=== PATIENT | male | born 1955 | race American Indian/Alaskan Native ===

== ENCOUNTER 2018-12-19 11:39 | Emergency (ER) | payer MEDICAID ==
[2018-12-19 12:07] VITALS: BMI 27.1
[2018-12-19 12:11] VITALS: BP 138/90; PULSE 72; RESP 18; TEMP 97.7; O2SAT 97
--- NOTE | 2018-12-19 12:48 | ED PDOC ---
Arrival/HPI - General Chief Complaint: Eye Problem Historian: Patient - History of Present Illness Narrative History of Present Illness (Text): 12/19/18 12:43 A 63 year old male, with no significant past medical history, presents to the emergency department complaining of right upper eyelid pain since yesterday morning. Patient states he wears glasses when reading. He mentions yesterday right eye was slightly watery, and feels more pain to the upper lid than lower lid. Also, states today upon waking up, found right upper eyelid to be puffy and had a hard time opening his right eye. Denies any itchiness, injuries/trauma, eye discharge, pain with eye movement, ear pain, congestion, or any other complaints at this time. Patient denies any history of diabetes. NKDA. Usually goes to the [facility] located in [place], [place]. 12/19/18 14:21 Past Medical History - Provider Review Nursing Documentation Reviewed: Yes - Infectious Disease Hx of Infectious Diseases: None - Psychiatric Hx Substance Use: No - Anesthesia Hx Anesthesia: No Family/Social History - Physician Review Nursing Documentation Reviewed: Yes Family/Social History: No Known Family HX Smoking Status: Former Smoker Hx Alcohol Use: Yes Frequency of alcohol use: Socially Hx Substance Use: No Allergies/Home Meds Allergies/Adverse Reactions: Allergies No Known Allergies Allergy (Verified 12/19/18 12:07) Review of Systems - Review of Systems Constitutional: absent: Fatigue, Fevers Eyes: Other (no foreign body sensation, there is pain to right upper eyelid). absent: Vision Changes, Photophobia ENT: absent: Voice Changes, Sore Throat, Rhinorrhea, Sinus Congestion Respiratory: absent: SOB Cardiovascular: absent: Chest Pain Gastrointestinal: absent: Abdominal Pain Musculoskeletal: absent: Back Pain Skin: absent: Rash Neurological: absent: Headache Physical Exam - Physical Exam Narrative Physical Exam (Text): Head: Atraumatic. Normocephalic. Eyes: PERRL. EOMI. Conjunctivae are not pale. ENT: Mucous membranes are moist and intact. Oropharynx is clear and symmetric. Neck: Supple. Full ROM. No JVD. No lymphadenopathy. Cardiovascular: Regular rate. Regular rhythm. No murmurs, rubs, or gallops. Distal pulses are 2+ and symmetric. Pulmonary/Chest: No evidence of respiratory distress. Clear to auscultation bilaterally. No wheezing, rales or rhonchi. Abdominal: Soft and non-distended. There is no tenderness. No rebound, guarding, or rigidity. No organomegaly. Good bowel sounds. Back: No CVA tenderness. Extremities: No edema. No cyanosis. No clubbing. Full range of motion in all extremities. No calf tenderness. Skin: Skin is warm and dry. No petechiae. No purpura. Neurological: Alert, awake, and oriented to person, place, time, and situation. Normal speech. Psychiatric: Good eye contact. Normal interaction, affect, and behavior. Vital Signs Reviewed: Yes Vital Signs Temp Pulse Resp BP Pulse Ox 12/19/18 12:10 97.7 F 72 18 138/90 97 Temperature: Afebrile Appearance: Positive for: Well-Appearing, Non-Toxic, Comfortable Pain Distress: Mild Mental Status: Positive for: Alert and Oriented X 3 - Systems Exam Head: Present: Atraumatic, Normocephalic. No: Ecchymosis Pupils: Present: PERRL Extroacular Muscles: Present: EOMI, Other (no pain with eye movements, no proptosis). No: Entrapment Conjunctiva: Present: Other (mild swelling to right upper eyelid medial aspect with no purulence noted, no fluctuance, mild surroudning erythema, no orbital erythema, no foreign bodies noted). No: Injected Ears: Present: NORMAL TM. No: Erythema Mouth: Present: Moist Mucous Membranes Pharnyx: No: ERYTHEMA, EXUDATE, Muffled/Hoarse Voice, Strider Nose (Internal): Present: Normal Inspection, No Active Bleeding Neck: Present: Normal Range of Motion. No: Meningeal Signs Respiratory/Chest: Present: Clear to Auscultation. No: Respiratory Distress Cardiovascular: Present: Regular Rate and Rhythm Abdomen: No: Tenderness Lymphatic: No: Cervical Adenopathy Psychiatric: Present: Alert, Normal Insight, Normal Concentration Medical Decision Making ED Course and Treatment: 12/19/18 14:21 Patient on exam is afebrile, nontoxic appearing. No pain with eye movements. No proptosis. Pain and swelling localized to right upper eyelid witn no corneal abrasion or foreign body noted. No orbital cellulitis noted. Suspect stye vs. chalazion, have recommended warm compresses, bacitracin opthalmic ointment, abx for localized erythema. Will discharge and advised follow-up with opthamology. - Scribe Statement The provider has reviewed the documentation as recorded by the Scribe Efrain Ortiz All medical record entries made by the Scribe were at my direction and personally dictated by me. I have reviewed the chart and agree that the record accurately reflects my personal performance of the history, physical exam, medical decision making, and the department course for this patient. I have also personally directed, reviewed, and agree with the discharge instructions and disposition. Disposition/Present on Arrival - Present on Arrival Any Indicators Present on Arrival: No History of DVT/PE: No History of Uncontrolled Diabetes: No Urinary Catheter: No History of Decub. Ulcer: No History Surgical Site Infection Following: None - Disposition Have Diagnosis and Disposition been Completed?: Yes Diagnosis: Stye, Swollen eyelid Disposition: HOME/ ROUTINE Disposition Time: 13:00 Patient Plan: Discharge Condition: GOOD Discharge Instructions (ExitCare): Stye (Hordeolum) Additional Instructions: For any fever, any increase in redness or swelling, any headaches, any facial swelling, any double or blurred vision, any "foreign body" sensation, any pain with eye movements, any persistent or worsening of any symptoms, any pus or drainage, get rechecked. Follow-up with your physician or an eye doctor in the next 2-3 days. Take medication as directed. Prescriptions: Bacitracin [Bacitracin Opht OINT] 1 applic OD Q8 #1 tube Cephalexin [cephalexin] 500 mg PO TID #21 cap Referrals: Igor Quick [Staff Provider] - Follow up with primary Forms: [employer] ([place])
== END 2018-12-19 13:00 | disposition home or self-care (01) ==
LOC: ED 11:39
DX: H00.011 Hordeolum externum right upper eyelid (principal); Z87.891 Personal history of nicotine dependence